=== PATIENT | female | born 1995 | race Caucasian/White ===

== ENCOUNTER → 2020-01-01 18:39 | Observation (INO) ==
[2020-01-01 17:41] LABS: Basophils % 0.4 %; Eosinophils % 0.3 %; Hematocrit 39.1 % (35.3-44.9); Hemoglobin 13.4 g/dL (11.5-15.4); Immature Granulocytes % 0.6 % (0-4); Mean Corpuscular HGB Conc 34.3 g/dL (31.6-35.5); Mean Corpuscular Volume 93.3 fL (83.0-100.0); Mean Platelet Volume 11.5 fL (9.4-12.4); Monocytes # 0.7 K/mcL (0.0-1.3); Monocytes % 6.2 %; Neutrophils # 8.2 K/mcL (1.6-8.9); Platelet Count 226 K/mcL (140-400); Red Blood Count 4.19 M/mcL (3.82-4.97); Red Cell Distribution Width 12.6 % (11.5-14.5); Segmented Neutrophils % 74.5 %
[2020-01-01 17:55] LABS: Protein/Creatinine Ratio,Urine 0.27 mg/mg (0.00-0.20)
[2020-01-01 18:00] LABS: Alanine Aminotransferase 13 Units/L (7-52); Aspartate Amino Transferase 21 Units/L (13-39); BUN/Creatinine Ratio 11 (6-26); Blood Urea Nitrogen 7 mg/dL (6-20); Lactate Dehydrogenase 200 Units/L (140-271); Uric Acid 5.8 mg/dL (2.3-7.6); eGFR For African Americans > 60 (> 60); eGFR For Non-African Americans > 60 (> 60)
[~2020-01-01 18:39] MED LIST: Acetaminophen 325 MG TABLET PO ONE
== END | disposition home or self-care (01) ==
LOC: 1NENULAB
PROVIDERS: ADMIT Advanced Practice Midwife; ATTEND Advanced Practice Midwife

== ENCOUNTER 2020-02-11 02:13 | Observation (INO) ==
[2020-02-11] MEDS ORDERED: cefOXitin 2,000 MG in 0.9 % Sodium Chloride Mini Bag 100 ML IVPB SCH (06:39)
[2020-02-11] MEDS ORDERED: *HR* OxyCODONE/APAP 10/325 TABLET PO PRN ×2 (06:39→16:09)
[2020-02-11] MEDS ORDERED: 0.9 % Sodium Chloride 1,000 ML IVC SCH (06:45)
[2020-02-11] MEDS ORDERED: Ondansetron 4 MG/2 ML VIAL IVP PRN ×2 (06:56→16:09)
[2020-02-11] MEDS ORDERED: Ondansetron 4 MG/2 ML VIAL IVP SCH (08:00)
[2020-02-11] MEDS ORDERED: Pantoprazole 40 MG VIAL IVP SCH (09:00)
[2020-02-11] MEDS: cefOXitin 2,000 MG in Water for inj. (sterile) 20 ML IVP SCH ×2 (11:08→16:15)
[2020-02-11] MEDS ORDERED: *HR* Midazolam HCl 2 MG/2 ML VIAL ONE (13:08)
[2020-02-11] MEDS ORDERED: Lidocaine -MPF 2% 2 ML VIAL ONE ×2 (13:08→13:09)
[2020-02-11] MEDS ORDERED: Ondansetron 4 MG/2 ML VIAL ONE (13:08)
[2020-02-11] MEDS ORDERED: *HR* Succinylcholine 200 MG/10 ML VIAL IVP ONE (13:08)
[2020-02-11] MEDS ORDERED: *HR* Rocuronium Bromide 50 MG/5 ML VIAL ONE (13:08)
[2020-02-11] MEDS ORDERED: Neostigmine Methylsulfate 3 MG/3 ML SYRINGE ONE (13:08)
[2020-02-11] MEDS ORDERED: *HR* Propofol 200 MG/20 ML VIAL IVP ONE (13:08)
[2020-02-11] MEDS ORDERED: Dexamethasone 4 MG/ML VIAL ONE (13:08)
[2020-02-11] MEDS ORDERED: *HR* FentaNYL (PF) 100 MCG/2 ML VIAL ONE (13:08)
[2020-02-11] MEDS ORDERED: *HR* Promethazine 25 MG/ML VIAL IVP PRN (13:29)
[2020-02-11] MEDS ORDERED: *HR* HYDROmorphone PF 0.5 MG/0.5 ML SYRINGE IVP PRN (13:29)
[2020-02-11] MEDS ORDERED: Ondansetron 4 MG/2 ML VIAL IVP ONE (13:29)
[2020-02-11] MEDS ORDERED: Bupivacaine/EPI 1:200k 0.5%PF 10 ML VIAL ONE (13:31)
[2020-02-11] MEDS ORDERED: Famotidine 20 MG/2 ML VIAL ONE (13:32)
[2020-02-11] MEDS ORDERED: Acetaminophen IV 1,000 MG/100 ML BAG ONE (13:32)
[2020-02-11] MEDS ORDERED: Lidocaine HCL 4 ML Topical Solution (Laryng-O-Jet Kit Sterile Pak) TP ONE (13:48)
[2020-02-11] MEDS ORDERED: Acetaminophen IV 1,000 MG/100 ML BAG IVPB ONE (14:02)
[2020-02-11 19:41] VITALS: BP 123/88
== END 2020-02-11 19:42 | disposition home or self-care (01) ==
LOC: 3ANU
PROVIDERS: ADMIT Surgery; ATTEND Surgery

== ENCOUNTER 2021-12-09 21:54 | Inpatient (IN) ==
[2021-12-09] MEDS ORDERED: Ondansetron 4 MG/2 ML VIAL IVP PRN (22:32)
[2021-12-09] MEDS ORDERED: Famotidine 20 MG/2 ML VIAL IVP PRN (22:32)
[2021-12-09] MEDS ORDERED: *HR* Nalbuphine 10 MG/ML AMPUL IV PRN (22:32)
[2021-12-09] MEDS ORDERED: Metoclopramide 10 MG/2 ML VIAL IVP PRN (22:32)
[2021-12-09] MEDS ORDERED: Naloxone 0.4 MG/ML INJ IVP PRN (22:32)
[2021-12-09] MEDS ORDERED: Oxytocin 30 UNIT/503 ML BAG IVC SCH (22:45)
[2021-12-09 23:05] LABS: Basophils # 0.1 K/mcL (0.0-0.2); Basophils % 0.6 %; Eosinophils # 0.1 K/mcL (0.0-0.6); Eosinophils % 0.5 %; Hematocrit 37.5 % (35.3-44.9); Immature Granulocytes % 0.9 % (0-4); Lymphocytes # 2.5 K/mcL (0.6-4.6); Lymphocytes % 21.3 %; Mean Corpuscular HGB Conc 34.7 g/dL (31.6-35.5); Mean Corpuscular Hemoglobin 32.3 pg (28.0-33.3); Mean Corpuscular Volume 93.3 fL (83.0-100.0); Mean Platelet Volume 11.1 fL (9.4-12.4); Monocytes # 0.7 K/mcL (0.0-1.3); Monocytes % 6.2 %; Neutrophils # 8.1 K/mcL (1.6-8.9); Platelet Count 205 K/mcL (140-400); Red Blood Count 4.02 M/mcL (3.82-4.97); Red Cell Distribution Width 13.2 % (11.5-14.5); Segmented Neutrophils % 70.5 %; White Blood Count 11.6 K/mcL (4.3-11.1)
[2021-12-09 23:09] LABS: Amphetamine Screen,Urine Negative ng/mL (Cutoff=1000); Barbiturate Screen,Urine Negative ng/mL (Cutoff=200); Benzodiazepines Screen,Urine Negative ng/mL (Cutoff=200); Cannabinoid Screen,Urine Negative ng/mL (Cutoff = 50); Cocaine Screen,Urine Negative ng/mL (Cutoff= 300); Opiate Screen,Urine Negative ng/mL (Cutoff=300); Phencyclidine Screen,Urine Negative ng/mL (Cutoff=25)
[2021-12-09 23:35] LABS: Influenza A PCR Negative (Negative); Influenza B PCR Negative (Negative); Resp. Syncytial Virus PCR Negative (Negative); SARS-CoV-2 by PCR (In House) Negative (Negative)
[2021-12-10] MEDS: Ringers Solution, Lactated 1,000 ML IVC SCH ×2 (00:11→09:52)
[2021-12-10] MEDS ORDERED: EPHEDrine 50 MG/ML VIAL IVP PRN (06:26)
[2021-12-10] MEDS ORDERED: Epidural Premix (fent/bupiv) 110 ML EP SCH (06:30)
[2021-12-10] MEDS ORDERED: *HR* Ropivacaine/PF 0.5% 20 ML VIAL ONE (09:40)
[2021-12-10] MEDS ORDERED: Ibuprofen 600 MG TABLET PO ONE (12:33)
[2021-12-10] MEDS ORDERED: Rho Immune Globulin 1,500 UNIT SYRINGE IM PRN (15:06)
[2021-12-10] MEDS ORDERED: Lanolin 7 G OINT...G. TP PRN (15:06)
[2021-12-10] MEDS ORDERED: Benzocaine/Menthol 56 GM AEROSOL SPRAY TP PRN (15:06)
[2021-12-10] MEDS ORDERED: Oxytocin 30 UNIT/503 ML BAG IVC SCH (15:06)
[2021-12-10] MEDS ORDERED: Ondansetron ODT 4 MG TAB.RAPDIS SL PRN (15:06)
[2021-12-10] MEDS: Acetaminophen 325 MG TABLET PO SCH ×2 (16:23→22:30)
[2021-12-10] MEDS: Ibuprofen 600 MG TABLET PO SCH ×2 (18:33→22:29)
[2021-12-11] MEDS: Ibuprofen 600 MG TABLET PO SCH ×3 (04:27→17:19)
[2021-12-11] MEDS: Acetaminophen 325 MG TABLET PO SCH ×4 (04:27→21:11)
[2021-12-11] MEDS: Prenatal Vit/FA 1 EACH TABLET PO SCH (08:54)
[2021-12-12 07:24] VITALS: BP 110/78; PULSE 83; TEMP 98.1; O2SAT 99
[2021-12-12] MEDS: Ibuprofen 600 MG TABLET PO SCH (08:29)
[2021-12-12] MEDS: Prenatal Vit/FA 1 EACH TABLET PO SCH (08:29)
== END 2021-12-12 12:55 | disposition home or self-care (01) | DRG 807 ==
LOC: 1NENULAB 21:54 → 1NENUOBS 12-10 15:01
PROVIDERS: ADMIT Advanced Practice Midwife; ATTEND Advanced Practice Midwife